=== PATIENT | male | born 1995 | race Caucasian/White ===

== ENCOUNTER 2017-12-13 12:15 | Emergency (ER) | payer OTHER ==
[~2017-12-13] VITALS: Ht 182.9 cm; Wt 89.0 kg
[2017-12-13] MEDS ORDERED: AMIN700T PEG (12:19)
[2017-12-13] MEDS ORDERED: BENZOCAINE/MENTHOL LOZENGE [8 LOZENGES/PACKET] PO ONE (12:45)
[2017-12-13 13:33] VITALS: BP 134/77
== END 2017-12-13 13:41 | disposition home or self-care (01) ==
LOC: EMS 12:19
DX: J02.0 Streptococcal pharyngitis (principal)
CPT/HCPCS: 87430; 99283

== ENCOUNTER 2018-01-15 16:18 | Emergency (ER) | payer OTHER ==
[~2018-01-15] VITALS: Ht 182.9 cm; Wt 86.4 kg
[~2018-01-15 16:18] MED LIST: AMIN700T PEG
[2018-01-15 18:39] VITALS: BP 128/71
== END 2018-01-15 18:53 | disposition home or self-care (01) ==
LOC: EMS 16:18
DX: H66.91 Otitis media, unspecified, right ear (principal); R03.0 Elevated blood-pressure reading, without diagnosis of hypertension
CPT/HCPCS: 99283